=== PATIENT | male | born 1960 | race Two or more races ===

== ENCOUNTER → 2025-03-23 | Outpatient (CLI) | payer MEDICARE, MEDICAID, SELFPAY ==
--- NOTE | 2025-03-23 | XR_ITS ---
Examination: Abdomen AP single view Technique: AP portable supine abdomen, single view Exam date and time: March 23, [address] abdomen pelvis April 06, 2018 INDICATIONS: History kidney stones FINDINGS: 11 mm lower pole left renal calculus No definite ureteral calculi Nonobstructive bowel gas pattern IMPRESSION: 11 mm left renal calculus
[2025-03-23 14:21] LABS: Prostate Specific Antigen 4.97 ng/mL (0-4.00)
== END | disposition home or self-care (01) ==
PROVIDERS: PCP Family Medicine; Referring Provider Surgery; Visit Provider Surgery
DX: N40.1 Benign prostatic hyperplasia with lower urinary tract symptoms (principal); R97.20 Elevated prostate specific antigen [PSA]; N20.0 Calculus of kidney
CPT/HCPCS: 36415; 74018; 84153

== ENCOUNTER 2025-04-21 11:55 | Day surgery (SDC) | payer MEDICARE, MEDICAID, SELFPAY ==
--- NOTE | 2025-04-18 10:02 | EKG_ITS ---
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
[2025-04-18 10:15] VITALS: BMI 28.5
[2025-04-18 11:31] LABS: Collection Type, Urine Clean Catch
[2025-04-18 12:23] LABS: Bilirubin,Urine Negative (Negative); Blood,Urine Negative (Negative); Clarity,Urine Clear (Clear/Hazy); Color,Urine Lt-Yellow (Lt Yel-Yel); Glucose, Urine Trace (Negative); Ketones,Urine Negative (Negative); Leukocyte Esterase,Urine Negative (Negative); Nitrite,Urine Negative (Negative); PH,Urine 6.5 (5.0-7.0); Protein,Urine Negative (Neg - Trace); RBC,Urine 2 /hpf (0-3); Specific Gravity,Urine 1.020 (1.001-1.035); Squamous Epithelial Cell,Urine < 1 /hpf (0-5); Urobilinogen,Urine Negative mg/dL (0.0-1.0); WBC,Urine 2 /hpf (0-5)
[2025-04-18 12:24] LABS: Basophils # (Auto) 0.0 Thou/mm3 (0.0-0.2); Basophils % (Auto) 1 % (0-2.5); Eosinophils # (Auto) 0.1 Thou/mm3 (0.0-0.5); Eosinophils % (Auto) 2 % (0-10); Hematocrit 39.6 % (41.0-53.0); Hemoglobin 14.0 g/dL (13.5-16.0); Immature Granulocytes Auto 0.05 Thou/mm3 (0.00-0.00); Lymphocytes # (Auto) 2.2 Thou/mm3 (1.0-4.8); Lymphocytes % (Auto) 30 % (10-50); Mean Corpuscular HGB Conc 35.4 g/dl (31.0-37.0); Mean Corpuscular Hemoglobin 30.5 pg (25.0-35.0); Mean Corpuscular Volume 86 fL (80-100); Monocytes # (Auto) 0.6 Thou/mm3 (0.0-0.8); Monocytes % (Auto) 8 % (0-12); Neutrophils # (Auto) 4.3 Thou/mm3 (1.8-7.7); Neutrophils % (Auto) 59 % (37-80); Nucleated Red Blood Cell # 0.00 Thou/mm3 (0.00-0.00); Nucleated Red Blood Cell % 0 /100 WBC (0); Platelet Count 201 Thou/mm3 (140-440); RDW Standard Deviation 39.9 fL (35.1-43.9); Red Blood Count 4.59 Miln/mm3 (4.50-5.90); White Blood Count 7.4 Thou/mm3 (3.8-10.6)
[2025-04-18 12:33] LABS: Alanine Aminotransferase 34 U/L (10-49); Albumin, Serum 4.5 gm/dL (3.4-4.8); Albumin/Globulin Ratio 1.7 (1.2-2.2); Alkaline Phosphatase 80 U/L (46-116); Anion Gap 9 (7-16); Aspartate Amino Transferase 22 U/L (0-34); BUN/Creatinine Ratio 14 Ratio (12-20); Bilirubin,Total 0.5 mg/dL (0.3-1.2); Blood Urea Nitrogen 14 mg/dL (9-23); Calcium 9.4 mg/dL (8.3-10.6); Calcium (Corrected) 9.4 mg/dL (8.5-10.1); Carbon Dioxide 27.6 mMol/L (20.0-31.0); Chloride 104 mMol/L (98-107); Creatinine (Component) 1.0 mg/dL (0.6-1.3); Estimated Creatinine Clearance 69.4 mL/min (>60); Globulin 2.7 gm/dL (2.3-3.5); Glucose 140 mg/dL (74-106); Osmolality,Calculated 283 (275-295); Potassium 4.2 mMol/L (3.4-5.1); Sodium 141 mMol/L (136-145); Total Protein 7.2 gm/dL (5.7-8.2); eGFR > 60 See Note
--- NOTE | 2025-04-20 14:35 | SUR.PREOP ---
Pt did not answered phone, voice message left and also contocted his ride [employer] to bring pt at 1200 tomorrow.
--- NOTE | 2025-04-20 16:00 | ESHP_ITS ---
RE: MELODY RUBIO : 1960 DATE OF ADMISSION: 04/20/2025 HISTORY OF PRESENT ILLNESS: Melody Rubio is a male patient 65-year-old. He had a history of gross hematuria and was found to have a kidney stone in both kidneys. He is scheduled to have ESWL done for the left kidney stone, which is about 5 mm in the lower pole. The patient also has a right kidney stone, which is smaller. He is now scheduled to have ESWL for the left kidney stone. He has a history of microscopic hematuria. PAST SURGICAL HISTORY: Knee surgery on the left. SOCIAL HISTORY: He has no children. ALLERGIES: NONE KNOWN. MEDICATIONS: He takes: 1. Ambien. 2. Cholesterol medications. PHYSICAL EXAMINATION: HEENT: Normal. NECK: Supple. LUNGS: Clear. CARDIOVASCULAR: Heart sounds are normal. ABDOMEN: Soft without any organomegaly. No guarding. No rigidity. EXTREMITIES: Normal. GENITOURINARY: Phallus is normal. Testes are down scrotum. LABORATORY DATA: The patient did have a high PSA of 4.3. It came down to 5.8 and now it is 2.6. Now his kidney stone on the left side is 11 mm. IMPRESSION AND PLAN: Left kidney stone, ESWL for the left kidney stone at this time. Planned procedure risks and complications have been discussed with the patient. The patient has understood and agreed to proceed. DT: 14:39:53 TT: 15:26:00 Ref: [id number] - TID: [id number]
[2025-04-21] VITALS (7 sets, daily range): BP systolic 93–135; BP diastolic 47–80; PULSE 70–89; RESP 12–17; TEMP 36.4–37; O2SAT 94–96; BMI 28.3
--- NOTE | 2025-04-21 06:00 | XR_ITS ---
Examination: Abdomen AP single view Technique: AP portable supine abdomen, single view Exam date and time: April 21, 2025 1314 hours INDICATIONS: History kidney stones preop lithotripsy FINDINGS: 10 mm calcification lower pole left kidney No ureteral calculi Nonobstructive bowel gas pattern IMPRESSION: 10 mm calculus lower pole left kidney
[2025-04-21] MEDS: RINGERS LACTATED 1000 ML 1,000 ML 20 ML IV (12:15)
--- NOTE | 2025-04-21 16:25 | SUR.PHASEI ---
pt received from OR in recovery bay 3. pt asleep but responds to voice, breathing unlabored on room air. v/s stable. report received from Eduin LEVY and Yuliya Palacios.
--- NOTE | 2025-04-21 16:45 | SUR.PHASEI ---
pt able to tolerate oral fluids without difficulty swallowing or nausea/vomiting.
--- NOTE | 2025-04-21 17:21 | SUR.PHASEII ---
pt awake and alert, breathing unlabored on room air. v/s stable. pt able to ambulate to wheelchair with steady gait. d/c instructions given with brother Ubaldo in room using tank furnace operator Erma KARIMI, all questions answered. pt d/c via wheelchair with all belongings.
--- NOTE | 2025-04-21 17:52 | ESOP_ITS ---
RE: MELODY EDMOND : 1960 DATE OF OPERATION: 04/21/2025 PREOPERATIVE DIAGNOSIS: Left lower pole renal stone and left flank pain. POSTOPERATIVE DIAGNOSIS: Left lower pole renal stone and left flank pain. PROCEDURE PERFORMED: ESWL for left renal stone. ANESTHESIA: General by Mr. Eduin CRNA. INDICATION: The patient is a 65-year-old male with left-sided flank pain. He has a 9 mm stone in the left lower pole of the left kidney. The patient has pain and he is now scheduled to have ESWL for the left renal stone. Planned procedure, risks, and complications have been discussed with the patient. The patient has understood them and agreed to proceed. DESCRIPTION OF PROCEDURE: After the patient was brought to the operating table under adequate general anesthesia in supine position, he was placed on Dornier Delta 3 lithotripsy machine. 2500 shocks were given to power level 8 to the left renal stone. The patient tolerated the entire procedure well and left the room in good condition. DT: 15:59:34 TT: 17:50:00 Ref: [id number] - TID: [id number]
== END 2025-04-21 17:21 | disposition home or self-care (01) ==
PROVIDERS: Anesthesiology; PCP Physician Assistant; Referring Provider Surgery; Visit Provider Surgery
PROC: (CPT 50590; principal; 2025-04-21 12:30)
DX: N20.0 Calculus of kidney (principal); Z01.810 Encounter for preprocedural cardiovascular examination
CPT/HCPCS: 50590; 36415; 74018; 80053; 81001; 85025; 87086; 93005; A4217; J0694; J1171; J1885; J2250; J2704; J3010; J3490; J7120; J1596